=== PATIENT | male | born 1965 | race Caucasian/White ===

== ENCOUNTER 2022-06-28 14:16 | Outpatient (CLI) | payer BC, SELFPAY ==
[2022-06-28 21:29] LABS: TSH With Reflex to FT4* 0.051 uIU/mL (0.270-4.200)
[2022-06-28 23:58] LABS: Free T4 Free Thyroxine* 1.38 ng/dL (0.70-1.85)
== END 2022-06-28 14:17 | disposition home or self-care (01) ==
LOC: NFLDREF 14:17
PROVIDERS: PCP Internal Medicine; Visit Provider Internal Medicine
DX: D12.6 Benign neoplasm of colon, unspecified (principal); E05.00 Thyrotoxicosis with diffuse goiter without thyrotoxic crisis or storm; N52.9 Male erectile dysfunction, unspecified; Z86.718 Personal history of other venous thrombosis and embolism
CPT/HCPCS: 84439; 84443

== ENCOUNTER 2022-08-24 07:47 | Outpatient (CLI) | payer BC, SELFPAY ==
--- NOTE | 2022-08-24 09:37 | W.ANESCHARGE ---
Anesthesia Charges Start Date/Time Anesthesia Start Date: 08/24/22 Anesthesia Start Time: 08:25 Stop Date/Time Anesthesia Stop Date: 08/24/22 Anesthesia Stop Time: 09:00 Summary Emergency: No
--- NOTE | 2022-08-24 10:22 | W.ANESCHARGE ---
Anesthesia Charges Start Date/Time Anesthesia Start Date: 08/24/22 Anesthesia Start Time: 08:25 Stop Date/Time Anesthesia Stop Date: 08/24/22 Anesthesia Stop Time: 09:00 Summary Emergency: No
== END 2022-08-24 07:48 | disposition home or self-care (01) ==
PROVIDERS: PCP Internal Medicine; Visit Provider Internal Medicine
DX: Z12.11 Encounter for screening for malignant neoplasm of colon (principal); K63.5 Polyp of colon; K62.1 Rectal polyp; Z86.010 Personal history of colon polyps
CPT/HCPCS: 00811; 45380; 45385; 88305; J2704

== ENCOUNTER 2022-10-01 15:00 | Outpatient (RCR) | payer BC, SELFPAY | END 2022-11-21 16:50 | disposition home or self-care (01) | PROVIDERS: PCP Internal Medicine; Visit Provider Internal Medicine | DX: M25.511 Pain in right shoulder (principal); Z51.89 Encounter for other specified aftercare | CPT/HCPCS: 97110; 97140; 97162 ==

== ENCOUNTER 2022-11-01 08:55 | Outpatient (CLI) | payer BC, SELFPAY ==
[2022-11-01 13:42] LABS: Albumin* 4.4 g/dL (3.3-5.0); Chloride* 106 mmol/L (96-114); Sodium* 140 mmol/L (135-149); TSH With Reflex to FT4* 0.911 uIU/mL (0.270-4.200)
[2022-11-01 13:43] LABS: Potassium* 4.2 mmol/L (3.6-5.1)
[2022-11-01 13:45] LABS: Alanine Aminotransferase* 33 U/L (4-50); Alkaline Phosphatase* 70 U/L (40-150); Aspartate Amino Transferase* 30 U/L (12-35); Bilirubin Total* 0.6 mg/dL (0.1-1.5); Blood Urea Nitrogen* 22 mg/dL (7-30); Carbon Dioxide* 29 mmol/L (20-32); Cholesterol* 194 mg/dL (90-199); Creatinine* 0.9 mg/dL (0.5-1.5); Estimated Glomerular Filt Rate 100 ml/min; Glucose* 87 mg/dL (60-115); Total Protein* 6.8 g/dL (6.0-8.3); Triglycerides* 126 mg/dL (40-149)
[2022-11-01 13:46] LABS: Calcium* 9.2 mg/dL (8.4-10.6); HDL Cholesterol* 61 mg/dL (>=40); LDL Cholesterol Calculated 108 mg/dL (<100)
[2022-11-01 14:16] LABS: PSA Screen* 0.86 ng/mL (0.10-4.00)
== END 2022-11-01 08:56 | disposition home or self-care (01) ==
PROVIDERS: PCP Internal Medicine; Visit Provider Internal Medicine
DX: E05.00 Thyrotoxicosis with diffuse goiter without thyrotoxic crisis or storm (principal); E03.9 Hypothyroidism, unspecified; L98.9 Disorder of the skin and subcutaneous tissue, unspecified; Z12.5 Encounter for screening for malignant neoplasm of prostate; Z13.6 Encounter for screening for cardiovascular disorders
CPT/HCPCS: 80053; 80061; 84153; 84443

== ENCOUNTER 2023-01-26 16:39 | Emergency (ER) | payer BC, SELFPAY ==
[2023-01-26 16:50] VITALS: BP 129/83; PULSE 73; RESP 18; TEMP 35.9; O2SAT 100
--- NOTE | 2023-01-26 16:59 | CRLHL7_ITS ---
For Patients: As a result of the Cures Act, medical imaging exams and procedure reports are released immediately into your electronic medical record. You may view this report before your referring provider. If you have questions, please contact your health care provider. INDICATION: Fall, left rib pain TECHNIQUE: Chest and left ribs total of 3 views. COMPARISON: None. FINDINGS: The heart is normal in size. The pulmonary vasculature is within limits. The lungs are clear without focal consolidation, pleural effusion or pneumothorax. Detailed oblique views performed of the left ribs after placement of a BB at the site of pain, cortical step-off of the posterior-lateral approximate 6th rib, suggests nondisplaced fracture. IMPRESSION: 1. Cortical step-off the posterolateral approximate left 6th rib, suggests nondisplaced fracture. 2. Otherwise no acute cardiopulmonary process. Dictated by Macarena Brambila MD @ 01/26/2023 5:56:26 PM Dictated by: Macarena Brambila MD @ 01/26/2023 17:56:31 (Electronically Signed)
--- NOTE | 2023-01-26 17:51 | ED_ITS ---
HPI - General Adult General Chief complaint: Rib Pain Stated complaint: Fell on Ice Saturday - Left Ribs Injury Time Seen by Provider: 01/26/23 16:52 Source: patient Mode of arrival: ambulatory Limitations: no limitations History of Present Illness HPI narrative: Patient comes in today complaining of left sided rib pain. Patient states that he slipped and fell on his left, side 5 days ago, on concrete. He felt immediate pain. He was hoping it was going to get better, but it has not. He has episodes where is painful to take deep breaths. No coughing and no shortness of breath. He did not hit his head or lose consciousness. Related Data Home Medications Medication Instructions Recorded Confirmed sildenafil 100 mg tablet 100 mg PO QDAY PRN 06/19/22 11/01/22 Previous Rx's Medication Instructions Recorded rivaroxaban 20 mg tablet 20 mg PO QDAY DVT #90 tabs 06/28/22 triamcinolone acetonide 0.1 % 1 applic topical QDAY Skin Lesion 11/01/22 topical cream #30 grams levothyroxine 150 mcg tablet 150 mcg PO QDAY #90 tabs 12/26/22 tamsulosin 0.4 mg capsule 0.4 mg PO QDAY #90 caps 12/26/22 Allergies Allergy/AdvReac Type Severity Reaction Status Date / Time bupropion Allergy Severe suicidal Verified 01/26/23 16:53 thoughts atorvastatin Allergy Intermediate Muscle Pain Verified 01/26/23 16:53 Review of Systems Status of ROS: Reports: 6 or more systems reviewed and unremarkable except as noted in History and below [facility] Medical History Chronic neck and back pain Skin lesion Thoracic back pain Surgical History History of colonoscopy (01/2010) History of hernia repair (01/2010) Social History Smoking Status: Former smoker Do you use any of these nicotine containing products: None Second hand tobacco smoke exposure: No How often do you have a drink containing alcohol: monthly or less How many standard drinks containing alcohol do you have on a typical day: 1 or 2 How often do you have six or more drinks on one occasion: Never AUDIT-C Alcohol total score: 1 Non-prescribed substance use: denies use Exam Narrative: Exam Narrative: Well-nourished well-developed patient in no acute distress. Alert and oriented. Answers questions appropriately. Mood and affect are appropriate. Thoughts are goal oriented and rational. No tangential or magical thinking noted. Patient speaks in full sentences without needing to catch his breath. HEENT: Normocephalic atraumatic. Pupils are equally round reactive to light. Extraocular muscles are intact. Conjunctivae are moist without any icterus noted. Cardiovascular: Heart is regular rate and rhythm S1 and S2 are present without any murmurs. Lungs: Clear to auscultation bilaterally no wheezes rhonchi or rales are appreciated. Patient does have left-sided lateral chest wall discomfort when he takes a deep breath. He does have tenderness to palpation over the lateral chest wall. No ecchymosis or swelling noted. Abdomen: Soft and nontender nondistended with normal bowel sounds. No guarding or rebound. No masses or organomegaly appreciated. Skin: Well perfused without any obvious rashes. Const: Vital Signs, click to edit/add: Vital Signs - 24 hr 01/26/23 16:50 Temperature 96.6 F L Pulse Rate [Right] 73 Respiratory Rate 18 Blood Pressure [Ri ght Upper Arm] 129/83 Pulse Oximetry 100 Oxygen Delivery Me thod Room Air Course Course Hospital Course: X-rays were done showing a fractured 6th rib consistent with the location of his pain. Vital Signs Vital signs: Initial Vital Signs Temperature 96.6 F L 01/26/23 16:50 Temperature Source Temporal Artery Scan 01/26/23 16:50 Pulse Rate 73 01/26/23 16:50 Pulse Rhythm 01/26/23 16:50 Pulse Strength 3+ Normal 01/26/23 16:50 Respiratory Rate 18 01/26/23 16:50 Blood Pressure 129/83 01/26/23 16:50 Blood Pressure Mean 98 01/26/23 16:50 Blood Pressure Position Sitting 01/26/23 16:50 Pulse Oximetry 100 01/26/23 16:50 Oxygen Delivery Method 01/26/23 16:50 Vital Signs Temperature 96.6 F L 01/26/23 16:50 Pulse Rate 73 01/26/23 16:50 Respiratory Rate 18 01/26/23 16:50 Blood Pressure 129/83 01/26/23 16:50 Pulse Oximetry 100 01/26/23 16:50 Oxygen Delivery Method 01/26/23 16:50 Temperature 96.6 F L 01/26/23 16:50 Pulse Rate 73 01/26/23 16:50 Respiratory Rate 18 01/26/23 16:50 Blood Pressure 129/83 01/26/23 16:50 Pulse Oximetry 100 01/26/23 16:50 Oxygen Delivery Method 01/26/23 16:50 Medical Decision Making MDM Narrative Medical decision making narrative: 57-year-old male with a rib fracture. Discussed symptomatic treatment. I will send him home with some hydrocodone. He had no other questions. Imaging Data Rib x-ray: Attestation: I have reviewed the pertinent imaging results. Radiologist's impression: Chest and left ribs total of 3 views. COMPARISON: None. FINDINGS: The heart is normal in size. The pulmonary vasculature is within limits. The lungs are clear without focal consolidation, pleural effusion or pneumothorax. Detailed oblique views performed of the left ribs after placement of a BB at the site of pain, cortical step-off of the posterior-lateral approximate 6th rib, suggests nondisplaced fracture. IMPRESSION: 1. Cortical step-off the posterolateral approximate left 6th rib, suggests nondisplaced fracture. 2. Otherwise no acute cardiopulmonary process. Discharge Plan Discharge Clinical Impression: Closed rib fracture Patient Disposition: Home, Self-Care Condition: Stable Additional Instructions: Okay to continue using Tylenol as needed. Okay to use pain medication as prescribed. Pain medication can cause constipation, make sure to stay well hydrated. Return for evaluation if you develop fever or shortness of breath. Remember to take deep breaths throughout the day. Pain medication does contain Tylenol (acetaminophen) also. Make sure not to take more than 3000 mg of Tylenol per day. Prescription sent to [facility] Prescriptions: No Action rivaroxaban 20 mg tablet 20 mg PO QDAY Qty: 90 3RF Rx Instructions: must administer with evening meal triamcinolone acetonide 0.1 % cream 1 applic topical QDAY Qty: 30 2RF sildenafil 100 mg tablet 100 mg PO QDAY PRN Rx Instructions: administer 30 minutes to 4 hours before activity tamsulosin 0.4 mg capsule 0.4 mg PO QDAY Qty: 90 1RF levothyroxine 150 mcg tablet 150 mcg PO QDAY Qty: 90 1RF Follow Up/Referrals: Shaji Vega MD [Primary Care Provider] - Stand Alone Forms: Co.Import Info Instructions
== END 2023-01-26 18:19 | disposition home or self-care (01) ==
PROVIDERS: Emergency Provider Family Medicine; PCP Internal Medicine
DX: S22.39XA Fracture of one rib, unspecified side, initial encounter for closed fracture (principal); W19.XXXA Unspecified fall, initial encounter
CPT/HCPCS: 71101; 99283; 99284

== ENCOUNTER 2023-10-30 16:45 | Outpatient (RCR) | payer BC, SELFPAY | END 2023-12-23 15:14 | disposition home or self-care (01) | PROVIDERS: PCP Internal Medicine; Visit Provider Internal Medicine | DX: M54.2 Cervicalgia (principal); M54.9 Dorsalgia, unspecified; Z51.89 Encounter for other specified aftercare | CPT/HCPCS: 97110; 97140; 97161 ==

== ENCOUNTER 2024-05-20 08:52 | Outpatient (CLI) | payer BC, SELFPAY ==
--- OUTSIDE RECORDS SUMMARY | 2024-05-20 08:55 | XMS_ITS | Clinical Summary ---
Author Organization [employer] [facility] Address [place], [place] [address] Care Team Providers Care Appeals Analyst Name Role Phone Pcp, No Primary Care Provider Unavailabl e Allergies Active Allergy Reactions Criticality Noted Date Comments Atorvastatin Other - Describe In Comment Field 01/27/2008 muscle pain Medications Medication Sig Dispensed Refills Start Date End Date Status ASPIRIN 81 MG TAB, DELAYED RELEASEIndications:Ty pe II or unspecified type diabetes mellitus without mention of complication, not stated as uncontrolled take 1 tablet (81 mg) by oral route once daily 0 10/03/2007 Active levothyroxine (SYNTHROID) 175 mcg tablet TK 1 T PO D 3 06/12/2018 Active XARELTO 20 mg tablet TK 1 T PO D WF 12 06/11/2018 Active tamsulosin (FLOMAX) 0.4 mg capsuleIndications:Be nign prostatic hyperplasia, unspecified whether lower urinary tract symptoms present TAKE 1 CAPSULE BY MOUTH EVERY DAY AFTER A MEAL 90 capsule 07/18/2020 Active Active Problems Problem Noted Date Diagnosed Date Narcotic contract 04/29/2008 Overview: Vicodin 7.5/500, 2-3 per day, Dr. 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, not stated as uncontrolled 01/24/2007 Prostatitis, unspecified 01/24/2007 Type II or unspecified type diabetes mellitus without mention of complication, not stated as uncontrolled 05/23/2006 Encounters Date Type Department Care Team Description 05/06/2024 1:30 PM CDT - 05/06/2024 11:59 PM CDT Hospital Encounter [facility] [address] [place] [address] Self, Referral Screening for cardiovascular condition 05/06/2024 Travel from Last 3 Months Immunizations Name Administration Dates Next Due Influenza, IIV3 (Age >=3 years) 10/03/2007,09/11 Td (Age >=7 Years) 08/20/1997 Family History Medical History Relation Name Comments Hypertension Father Heart Disease Maternal Grandfather 65 yea rs Diabetes Paternal Grandmother Cancer Paternal Uncle throat Relation Name Status Comments Father Maternal Grandfather Paternal Grandmother Paternal Uncle Social History Tobacco Use Types Packs/Day Years Used Date Smoking Tobacco: Former Cigarettes 0 02/17/1983 - 02/18/2008 Smokeless Tobacco: Never Tobacco Cessation:Counseling Given: Yes Alcohol Use Standard Drinks/Week Comments Yes 0 (1 standard drink = 0.6 oz pur e alcohol) very seldom Sex and Gender Information Value Date Recorded Sex Assigned at Not on file Gender Identity Not on file Sexual Orientation Not on file Obstetrics History Last Filed Vital Signs Vital Sign Reading Time Taken Comments Blood Pressure 126/85 06/25/2018 3:42 PM CDT Pulse 74 06/25/2018 3:42 PM CDT Temperature 36.9 ??C (98.5 ??F) 06/25/2018 3:42 PM CD T Respiratory Rate - - Oxygen Saturation 98% 06/25/2018 3:42 PM CDT Inhaled Oxygen Concentration - - Weight 106.3 kg (234 lb 6.4 oz) 06/25/2018 3:42 PM CDT Height 187.3 cm (6' 1.75) 06/25/2018 3:42 PM CD T Body Mass Index 30.3 06/25/2018 3:42 PM CDT Plan of Treatment Health Maintenance Due Date Last Done Comments Tdap 1977 Depression screening for age 12+ 1978 HIV for age 15-65 1981 Hepatitis C screening for age 18-79 1984 Tetanus booster 08/20/2007 08/20/1997 Colonoscopy through age 75 2011 Lipids for age 45-75 12/30/2012 12/30/2007, 10/03/2007, 08/07/2007, Additional history exists Zoster (shingles) series for age 50+ (1 of 2) 2016 BMI (ht and wt on same day) for age 18+ 06/25/2019 06/25/2018 COVID-19 vaccine series (2022- season) 2023 03/15/2021, 02/15/2021 Influenza for age 50-64 07/26/2024 10/03/2007, 09/11 Pneumococcal series for age 6-64 Aged Out No longer eligible based on patient's age to complete this topic Procedures Procedure Name Priority Date/Time Associated Diagnosis Comments CT CARDIAC CALCIUM SCORE ONLY WO SINGLE READ Routine 05/06/2024 1:58 PM CDT Screening for cardiovascular condition LIPID PANEL Routine 12/30/2007 7:59 AM [employer]CH[employer]ICIAN Vaccination Against Influenza Diabetes Mellitus Type Ii Hyperlipidemia from Last 3 Months or Most Recently Relevant to Health Maintenance Results * CT CARDIAC CALCIUM SCORE ONLY WO SINGLE READ (05/06/2024 1:58 PM CDT) Anatomical Region Laterality Modality Computed Tomogra phy Impressions 05/07/2024 6:55 PM CDT ??There are no acute or suspicious extracardiac imaging abnormalities. Please note that all CT scans at this facility use dose modulation, iterative reconstruction and/or weight-based dosing when appropriate to reduce radiation dose to as low as reasonably achievable. Lonnie Huffman M.D. Pediatric/Diagnostic Radiologist Cardiothoracic [email or web address] KRISTIN/elaine / ? Narrative 05/07/2024 6:55 PM CDT For Patients: As a result of the Century Cures Act, medical imaging exams and procedure reports are released immediately into your electronic medical record. ??You may view this report before your referring provider. ?? If you have questions, please contact your health care provider. CT CARDIAC CALCIUM SCORING 05/06/2024 PATIENT HISTORY: ??Screening for cardiovascular condition. ?? REPORT: ??High-resolution, ECG-synchronized noncontrast computed tomography of the heart with attention to the coronary arteries was performed. ?? Coronary calcification analyzed using Siemens calcium scoring software. These are the results of the evaluation: CT Calcium Scoring: ??This cardiac CT examination will provide you with a coronary artery calcium score. A coronary artery calcium score is a measurement of the amount of calcified plaque in the coronary arteries, the arteries that supply blood to the heart muscle. The coronary artery calcium score is calculated based on the number, size, and density of the calcified plaques in the coronary arteries. The amount of calcified coronary plaque has been shown to directly correlate with future risk for heart disease. The coronary artery calcium is a marker of how much plaque has accumulated in the seals of the coronary arteries. It is not a test for blockages. This test is intended to assess cardiovascular risk in patients without symptoms. It is not intended to be a test for individuals with chest pain or other possible symptoms suggestive of heart disease. If you are having chest pain or other potential cardiovascular symptoms, see your physician. Calcium Score: Left main = 0 Left anterior descending = 0 Left circumflex = 0 Right coronary artery = 0 Total calcium score = 0 This places the patient at the zero percentile for matched age and gender. NO CALCIFIED PLAQUE SEEN Assessment: Your cardiac CT examination has shown no measurable calcified coronary plaque. Your coronary artery calcium score is zero. Having zero calcified plaque in the arteries that supply your heart is associated with a low risk for heart attack over the next 5 years. As discussed above, the coronary artery calcium score is intended for risk assessment in patients without cardiovascular symptoms. The low risk associated with having zero calcified plaque does not apply to individuals who are having symptoms. If you are having chest pain or other potential cardiovascular symptoms, see your physician. Recommendations: To maintain a low cardiovascular risk, we strongly recommend adherence to healthy lifestyle behaviors including: Following a heart healthy diet focused on modest portion sizes, a high intake of fresh fruits and vegetables, whole grains, healthy fats (olive oil, nuts and seeds, avocados), and healthy proteins (unprocessed meats, fish, legumes) Following an active lifestyle including 30-45 minutes of moderate intensity exercise 5-6 times per week Avoidance of tobacco products The scientific evidence would suggest that the majority of individuals with a coronary artery calcium score of zero are at low risk for a heart attack, low enough risk that they are unlikely to benefit from preventive cardiovascular medication including aspirin and the cholesterol lowering statin medications. We recommend that individuals with a coronary artery calcium score of zero avoid taking a daily aspirin to prevent heart disease, as they are unlikely to benefit from aspirin, and aspirin use is associated with a small increase in the risk of bleeding. Unless you have markedly elevated cholesterol or diabetes, the scientific evidence would suggest that individuals with a calcium score of zero can potentially avoid taking cholesterol-lowering medications for the next 3-5 years. These recommendations are generalized and may not specifically apply to you as an individual. Your primary care physician is in the best position to provide advice on your care and clinical decisions should ultimately be made by you and your physician. Referral Self CT * (ABNORMAL) LIPID PANEL (12/30/2007 7:59 AM [employer] TECHNICIAN) Pathologist [facility] CHOLESTEROL,TOTAL 129 110 - 199 mg/dL [facility] TRIGLYCERIDES 135 <150 mg/dL [facility] HDL CHOLESTEROL 38(L) >40 mg/dL [facility] CHOL/HDL RATIO 3.39 <4.51 [facility] LDL CHOLESTEROL 64 <131 mg/dL [facility] PATIENT STATUS Fasting [facility] Blood specimen (specimen) BLOOD SPECIMEN / Unknown 12/30/2007 7:59 AM [employer] TECHNICIAN 12/30/2007 7:51 AM [employer] TECHNICIAN Jimmy Noavk MD CHEMISTRY [facility] [address] [place] [address] from Last 3 Months or Most Recently Relevant to Health Maintenance Care Teams Appeals Analyst Relationship Specialty Start Date End Date Pcp, No . PCP - General 05/05/24
== END 2024-05-20 08:53 | disposition home or self-care (01) ==
LOC: NFLDREF 08:54
PROVIDERS: PCP Internal Medicine; Visit Provider Internal Medicine
DX: N52.9 Male erectile dysfunction, unspecified (principal)
CPT/HCPCS: 84403

== ENCOUNTER 2024-09-18 19:36 | Emergency (ER) | payer BC, SELFPAY ==
[2024-09-18] VITALS (9 sets, daily range): BP systolic 159; BP diastolic 90; PULSE 82–99; RESP 16; TEMP 36.5; O2SAT 91–97; BMI 28.2
--- NOTE | 2024-09-18 21:01 | ED_ITS ---
HPI - Dizziness General Time Seen by Provider: 21:01 Date Seen: 09/18/24 Chief Complaint: Dizziness/Vertigo Stated Complaint: Dizzy--took too many edibles, R flank pain Time Seen by Provider: 09/18/24 21:00 Source: patient, RN notes reviewed and old records reviewed Mode of arrival: ambulatory Limitations: no limitations History of Present Illness HPI Narrative: This 59-year-old male accompanied by family with complaint of right flank pain. They were going to dinner tonight, felt it come on severe at dinner in his right flank and right upper quadrant. He got very nauseated and clammy with this. For the past couple months he has been may be having some mild pain, feels like it may come on after eating. He had not eaten tonight however. No fevers chills prior, no vomiting. He feels the pain is coming in waves. His mom has had her gallbladder out. He has no history of kidney stones, has not had any abdominal surgery before. He admits that he took too much THC gummies around 4:00 p.m. for foot pain. He felt suddenly dizzy tonight at dinner with all of this. He admits he maybe took 10 times the recommended amount. He is ultimately here for the abdominal/flank pain. No trauma. He has noted no urinary changes, no hematuria. He is on Xarelto for history of a DVT. He is also on tamsulosin for BPH. In review of his chart, he has had inguinal hernia repair and colonoscopy before. Related Data Previous Rx's ?Medication ?Instructions ?Recorded levothyroxine 150 mcg tablet 150 mcg PO QDAY #90 tabs 01/08/24 rivaroxaban 20 mg tablet 20 mg PO QDAY DVT #90 tabs 01/08/24 tamsulosin 0.4 mg capsule 0.4 mg PO QDAY #90 caps 01/08/24 cephalexin 500 mg tablet 500 mg PO TID #20 tabs 09/19/24 Allergies Allergy/AdvReac Type Severity Reaction Status Date / Time bupropion Allergy Severe suicidal Verified 09/18/24 20:02 thoughts atorvastatin Allergy Intermediate Muscle Pain Verified 09/18/24 20:02 Review of Systems Status of ROS: Reports: 6 or more systems reviewed and unremarkable except as noted in History and below [facility] Medical History Otitis media ?H66.90 - Otitis media, unspecified, unspecified ear (ICD-10) Neck pain ?M54.2 - Cervicalgia (ICD-10) Skin lesion ?L98.9 - Disorder of the skin and subcutaneous tissue, unspecified (ICD-10) Chronic neck and back pain ?M54.2 - Cervicalgia (ICD-10) ?M54.9 - Dorsalgia, unspecified (ICD-10) ?G89.29 - Other chronic pain (ICD-10) Thoracic back pain ?M54.6 - Pain in thoracic spine (ICD-10) Surgical History History of sinus surgery ?Z98.890 - Other specified postprocedural states (ICD-10) History of hernia repair (01/2010) ?Z98.890 - Other specified postprocedural states (ICD-10) ?Z87.19 - Personal history of other diseases of the digestive system (ICD-10) History of colonoscopy (01/2010) ?Z98.890 - Other specified postprocedural states (ICD-10) Social History Smoking Status: Former smoker Do you use any of these nicotine containing products: None Second hand tobacco smoke exposure: No How often do you have a drink containing alcohol: monthly or less How many standard drinks containing alcohol do you have on a typical day: 1 or 2 How often do you have six or more drinks on one occasion: Never AUDIT-C Alcohol total score: 1 Non-prescribed substance use: marijuana (any form) Exam Const: Vital Signs, click to edit/add: Vital Signs - 24 hr 09/18/24 20:02 09/18/24 21:12 09/18/24 21:20 Temperature 97.7 F Pulse Rate 93 88 Pulse Rate [Pulse Oximeter] 99 Respiratory Rate 16 Blood Pressure [Ri ght Upper Arm] 159/90 H Pulse Oximetry 96 94 92 Oxygen Delivery Me thod Room Air 09/18/24 21:30 09/18/24 21:35 09/18/24 21:45 Temperature Pulse Rate 92 87 92 Pulse Rate [Pulse Oximeter] Respiratory Rate Blood Pressure [Ri ght Upper Arm] Pulse Oximetry 96 93 94 Oxygen Delivery Me thod 09/18/24 22:00 09/18/24 22:05 09/18/24 22:15 Temperature Pulse Rate 88 89 82 Pulse Rate [Pulse Oximeter] Respiratory Rate Blood Pressure [Ri ght Upper Arm] Pulse Oximetry 97 93 91 Oxygen Delivery Me thod This patient initially is tearful, willing and crying, pain seems to settle while I am in there and he does start falling asleep. Sclera are injected but no icterus, pupils equal round, reactive. Symmetrical facial function. Speech is normal. Neck is supple. Lungs are clear, good air entry, no wheezing crackles. CV regular rate and rhythm, no murmur, normal S1-S2, no S3-S4. Abdomen right now is soft, nontender, no rebound or guarding. He states there is maybe some deep right lateral upper abdominal pain but he certainly has no rebound or guarding. I feel no masses. Bowel sounds are present. He has normal lower extremities, no edema noted. Documenting provider has reviewed patient's vital signs: yes Course Course ED Course: Patient did just urinate prior to coming in. Will start with CT imaging noncontrast given that his pain is coming in waves. Top etiologies are gallbladder disease, kidney disease with kidney stones. Will initiate IV fentanyl as he is on Xarelto and thus do not feel we should be using Toradol. Will also give him Zofran for control of nausea. Will get full complement of labs including urinalysis. They understand that he may need to go back for CT imaging with IV contrast if need be. He will be monitored on pulse oximetry. Will obtain EKG and troponin, consider atypical presentation of cardiac disease. Reevaluation(s) Time of Reevaluation #1: 22:38 Reevaluation #1: Reviewed CT report with patient. There is nothing to explain his pain. We did discuss the probable renal cyst but if not seen them causes excruciating pain. This could be further followed up with renal ultrasound outpatient. He has not provided a urinalysis yet, will allow and drink. He states he is ?shitty?. He states he keeps getting spasms of pain. We discussed that sometimes we do not find initially etiologies, may need to follow up with his primary. Certainly if he has ongoing issues or issues are changing, re-evaluation will always be recommended. He understands that I would like to see his urinalysis but at this time I do not have definitive etiology. Muscles can spasm but it sounds as if this was quite severe for him. I am not sure of the etiology but I am not finding anything emergent to intervene on at this time. Time of Reevaluation #2: 00:51 Reevaluation #2: Have reviewed with patient that there is small amount of bacteria on his urinalysis but not a lot of white blood cells. We discussed treating for a possibility of underlying urinary tract infection while we await urine culture. We went over pros and cons of this, he opted to treat. Will give him dose of oral Keflex here tonight and send rest of prescription into his pharmacy. He has a follow-up appointment with Dr. Vega this week. They can follow-up on the culture result and decide if ongoing antibiotics are needed or not. Vital Signs Vital signs: Initial Vital Signs Temperature 97.7 F 09/18/24 20:02 Temperature Source Temporal Artery Scan 09/18/24 20:02 Pulse Rate 99 09/18/24 20:02 Respiratory Rate 16 09/18/24 20:02 Blood Pressure 159/90 H 09/18/24 20:02 Blood Pressure Mean 113 H 09/18/24 20:02 Blood Pressure Position Sitting 09/18/24 20:02 Pulse Oximetry 96 09/18/24 20:02 Oxygen Delivery Method Room Air 09/18/24 20:02 Vital Signs Temperature 97.7 F 09/18/24 20:02 Pulse Rate 99 09/18/24 20:02 Respiratory Rate 16 09/18/24 20:02 Blood Pressure 159/90 H 09/18/24 20:02 Pulse Oximetry 96 09/18/24 20:02 Oxygen Delivery Method Room Air 09/18/24 20:02 Temperature 97.7 F 09/18/24 20:02 Pulse Rate 82 09/18/24 22:15 Respiratory Rate 16 09/18/24 20:02 Blood Pressure 159/90 H 09/18/24 20:02 Pulse Oximetry 91 09/18/24 22:15 Oxygen Delivery Method Room Air 09/18/24 20:02 Medications Administered Medications: Discontinued Medications Generic Name Dose Route Start Last Admin Trade Name Freq PRN Reason Stop Dose Admin Fentanyl 25 mcg 09/18/24 21:09 09/18/24 21:40 Fentanyl 100 Mcg/2 Ml Inj IVP 09/18/24 21:10 25 mcg ONCE ONE Administration Sodium Chloride 500 mls @ 500 mls/hr 09/18/24 21:07 09/18/24 22:25 0.9 % Sodium Chloride 500 Ml IV 09/18/24 22:06 Infused .Q1H ONE Infusion Ondansetron HCl 4 mg 09/18/24 21:07 09/18/24 21:40 Ondansetron 2 Mg/Ml Inj IVP 09/18/24 21:08 4 mg ONCE ONE Administration MDM - Dizziness Lab Data Attestation: I reviewed the patient's lab results. Labs: Lab Results 09/18/24 09/18/24 Range/Units 21:29 23:39 WBC 8.38 (4.50-11.00) K/uL RBC 4.42 (4.30-5.90) m/uL Hgb 14.7 (13.5-17.5) gm/dL Hct 43.1 (37.0-53.0) % MCV 98 (80-100) fL MCH 33 (26-34) pg MCHC 34 (32-36) gm/dL RDW Coeff of Snow 12.0 (11.5-15.5) % Plt Count 181 (140-440) K/uL Neut % (Auto) 79.3 H (42.0-72.0) % Lymph % (Auto) 11.0 L (20-44) % Frio % (Auto) 9.1 (0.0-11.0) % Eos % (Auto) 0.4 (0.0-7.0) % Baso % (Auto) 0.1 (0.0-3.0) % Neut # (Auto) 6.60 (1.7-7.0) K/uL Lymph # (Auto) 0.90 (0.90-2.90) K/uL Frio # (Auto) 0.80 (0.00-0.90) K/UL Eos # (Auto) 0.03 (0.00-0.50) K/uL Baso # (Auto) 0.01 (0.00-0.30) K/uL Abs Immat Gran (auto) 0.01 (0.00-0.30) K/uL Imm/Tot Granulo (auto) 0.1 % Sodium 132 L (135-149) mmol/L Potassium 3.5 L (3.6-5.1) mmol/L Chloride 99 (96-114) mmol/L Carbon Dioxide 25 (20-32) mmol/L Anion Gap 8 (7-15) mEq/L BUN 21 (7-30) mg/dL Creatinine 1.0 (0.5-1.5) mg/dL Estimated Creat Clear 93.62 Estimated GFR 87 ml/min Glucose 126 H (60-115) mg/dL Lactate 0.9 (0.5-1.9) mmol/L Calcium 9.3 (8.4-10.6) mg/dL Total Bilirubin 0.4 (0.1-1.5) mg/dL Direct Bilirubin 0.1 (0.0-0.5) mg/dL AST 28 (12-35) U/L ALT 27 (4-50) U/L Alkaline Phosphatase 51 (40-150) U/L Troponin I < 0.01 L (0.01-0.04) ng/mL C-Reactive Protein < 0.5 L (0.5-1.0) mg/dL Total Protein 7.1 (6.0-8.3) g/dL Albumin 4.7 (3.3-5.0) g/dL Lipase 180 (23-300) U/L Urine Color Yellow (Yellow) Urine Appearance Clear (Clear) Urine pH 5.5 (5.0-8.5) Ur Specific [place] 1.015 (1.000-1.030) Urine Protein Negative (Negative) Urine Glucose (UA) Negative (Negative) Urine Ketones Negative (Negative) Urine Blood 1+ A (Negative) Urine Nitrite Negative (Negative) Urine Bilirubin Negative (Negative) Urine Urobilinogen 0.2 (0.2-1.0) Ur Leukocyte Esterase Trace A (Negative) Urine RBC 2-5 A (0-2) Urine WBC 0-2 (0-5) Ur Squamous Epith Cells None (None-Few) Urine Bacteria Few A (None) Ethyl Alcohol < 0.01 L (0.01-0.03) % Imaging Data CT scan - abdomen: Attestation: I have reviewed the pertinent imaging results. My impression: Did look it is noncontrast CT. Certainly do not see any changes room the gallbladder or anything within the right kidney. He may have some renal cysts. Await Radiology over-read. Radiologist's impression: Patient: HAILEY LEUNG JR Facility:?[facility] Patient ID:?[id number] Site Patient ID:?[id number]. Site :?[id number] Study:?CT-Abdomen/Pelvis w/o-09/18/2024 9:17:58 PM Ordering Physician:?Gregory Bo Final Report: INDICATION: Right upper quadrant, right flank pain TECHNIQUE: CT Abdomen and pelvis without i.v. contrast. Coronal and sagittal reformats were obtained. COMPARISON: 11/16/2020 FINDINGS: Lower chest: Unremarkable. Liver: Unremarkable. Spleen: Unremarkable. Pancreas: Unremarkable. Gallbladder: Unremarkable. Kidney: Several low-density lesions are present within the right kidney measuring up to 5.5 cm. These are incompletely characterized without the use of intravenous contrast. There is an 8 mm stone present in the lower pole of the left kidney. Adrenal: Unremarkable. Bowel: Moderate diverticulosis of the sigmoid colon is present with no evidence of diverticulitis. The appendix is normal in appearance and size. Vascular: Unremarkable. Lymph: Unremarkable. Peritoneum: Unremarkable. No pneumoperitoneum is seen. No significant ascites is noted. Pelvis: Unremarkable. Soft tissue: Unremarkable. Bone: Unremarkable for age. IMPRESSION: 1. No CT correlate for the patient`s symptoms seen. Dictated by Sharan Gleason MD @ 09/18/2024 9:34:03 PM Please note that all CT scans at this facility use dose modulation, iterative reconstruction, and/or weight-based dosing when appropriate to reduce radiation dose to as low as reasonably achievable. Dictated by: Sharan Gleason MD @ 09/18/2024 21:34:17 (Electronic Signature) ECG Data Attestation: I personally reviewed and interpreted this ECG as follows: (Normal sinus rhythm, 83 beats per minute. No acute ischemia, no infarct.) ECG interpretation date: 09/18/24 ECG interpretation time: 22:31 Prior ECG tracings: not available for review Discharge Plan Discharge Clinical Impression: Acute right flank pain, Bacteriuria Instructions: Urinary Tract Infection in Men (ED), Flank Pain (ED) Additional Instructions: We will cover with antibiotics with Keflex and weight urine culture results. It is possible that there could be infection in the urinary tract. Watch for fever, increasing pain, vomiting with these symptoms; please seek re-evaluation if you note these. If you have other concerns in the interim room or symptoms are changing, recommend re-evaluation. Otherwise take antibiotics as prescribed, push fluids and follow-up with your primary provider this upcoming week as you have scheduled. Activity Level: Activity as Tolerated Prescriptions: New cephalexin 500 mg tablet 500 mg PO TID Qty: 20 0RF No Action levothyroxine 150 mcg tablet 150 mcg PO QDAY Qty: 90 3RF rivaroxaban 20 mg tablet 20 mg PO QDAY Qty: 90 3RF Rx Instructions: must administer with evening meal tamsulosin 0.4 mg capsule 0.4 mg PO QDAY Qty: 90 3RF Follow Up/Referrals: Shaji Vega MD [Primary Care Provider] - Stand Alone Forms: [employer] Info Instructions
--- NOTE | 2024-09-18 21:08 | CRLHL7_ITS ---
For Patients: As a result of the Cures Act, medical imaging exams and procedure reports are released immediately into your electronic medical record. You may view this report before your referring provider. If you have questions, please contact your health care provider. INDICATION: Right upper quadrant, right flank pain TECHNIQUE: CT Abdomen and pelvis without i.v. contrast. Coronal and sagittal reformats were obtained. COMPARISON: 11/16/2020 FINDINGS: Lower chest: Unremarkable. Liver: Unremarkable. Spleen: Unremarkable. Pancreas: Unremarkable. Gallbladder: Unremarkable. Kidney: Several low-density lesions are present within the right kidney measuring up to 5.5 cm. These are incompletely characterized without the use of intravenous contrast. There is an 8 mm stone present in the lower pole of the left kidney. Adrenal: Unremarkable. Bowel: Moderate diverticulosis of the sigmoid colon is present with no evidence of diverticulitis. The appendix is normal in appearance and size. Vascular: Unremarkable. Lymph: Unremarkable. Peritoneum: Unremarkable. No pneumoperitoneum is seen. No significant ascites is noted. Pelvis: Unremarkable. Soft tissue: Unremarkable. Bone: Unremarkable for age. IMPRESSION: 1. No CT correlate for the patient`s symptoms seen. Dictated by Sharan Gleason MD @ 09/18/2024 9:34:03 PM Please note that all CT scans at this facility use dose modulation, iterative reconstruction, and/or weight-based dosing when appropriate to reduce radiation dose to as low as reasonably achievable. Dictated by: Sharan Gleason MD @ 09/18/2024 21:34:17 (Electronically Signed)
--- OUTSIDE RECORDS SUMMARY | 2024-09-18 21:12 | XMS_ITS | Clinical Summary ---
Author Organization [facility] Address [place], [place] [address] Care Team Providers Care Gear Cutter Name Role Phone Pcp, No Primary Care [...] Noted Date Diagnosed Date Narcotic contract 04/29/2008 Overview (04/29/2008): Vicodin 7.5/500, 2-3 per day, Dr. 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 LDL CHOLESTEROL 64 <131 mg/dL [facility] PATIENT STATUS Fasting [facility] Blood specimen (specimen) BLOOD SPECIMEN / Unknown 12/30/2007 7:59 AM LINK WIRE FABRIC MACHINE OPERATOR 12/30/2007 7:51 AM LINK WIRE FABRIC MACHINE OPERATOR Jimmy Novak MD CHEMISTRY [facility] [address] [place] [address] from Last 3 Months or Most Recently Relevant to Health Maintenance Care Teams Gear Cutter Relationship Specialty Start Date End Date Pcp, No . PCP - General 05/05/24
[2024-09-18 21:30] LABS: Lactate* 0.9 mmol/L (0.5-1.9)
[2024-09-18 21:32] LABS: Basophils Absolute Auto 0.01 K/uL (0.00-0.30); Basophils Percent Auto 0.1 % (0.0-3.0); Eosinophils Absolute Auto 0.03 K/uL (0.00-0.50); Eosinophils Percent Auto 0.4 % (0.0-7.0); Hematocrit 43.1 % (37.0-53.0); Hemoglobin* 14.7 gm/dL (13.5-17.5); Immature Granulocytes Abs Auto 0.01 K/uL (0.00-0.30); Immature Granulocytes Pct Auto 0.1 %; Mean Corpuscular HGB Conc 34 gm/dL (32-36); Mean Corpuscular Hemoglobin 33 pg (26-34); Mean Corpuscular Volume 98 fL (80-100); Monocytes Percent Auto 9.1 % (0.0-11.0); Neutrophils Percent Auto 79.3 % (42.0-72.0); Platelet Count* 181 K/uL (140-440); Red Blood Count 4.42 m/uL (4.30-5.90); White Blood Count* 8.38 K/uL (4.50-11.00)
[2024-09-18 21:40] LABS: Slide Review Reflex No
[2024-09-18] MEDS: 0.9 % SODIUM CHLORIDE 500 ML 500 ML IV (21:40)
[2024-09-18] MEDS: fentaNYL 100 MCG/2 ML inj 25 MCG IVP (21:40)
[2024-09-18] MEDS: ONDANSETRON 2 MG/ML inj 4 MG IVP (21:40)
[2024-09-18 21:48] LABS: Albumin* 4.7 g/dL (3.3-5.0); Chloride* 99 mmol/L (96-114); Sodium* 132 mmol/L (135-149)
[2024-09-18 21:49] LABS: Potassium* 3.5 mmol/L (3.6-5.1)
[2024-09-18 21:51] LABS: Anion Gap 8 mEq/L (7-15); Aspartate Amino Transferase* 28 U/L (12-35); Bilirubin Direct* 0.1 mg/dL (0.0-0.5); Bilirubin Total* 0.4 mg/dL (0.1-1.5); Carbon Dioxide* 25 mmol/L (20-32); Est. Creatinine Clearance* 93.62; Estimated Glomerular Filt Rate 87 ml/min; Total Protein* 7.1 g/dL (6.0-8.3)
[2024-09-18 21:52] LABS: Alanine Aminotransferase* 27 U/L (4-50); Alkaline Phosphatase* 51 U/L (40-150); Blood Urea Nitrogen* 21 mg/dL (7-30); Calcium* 9.3 mg/dL (8.4-10.6); Glucose* 126 mg/dL (60-115); Lipase* 180 U/L (23-300)
[2024-09-18 22:06] LABS: C Reactive Protein* < 0.5 mg/dL (0.5-1.0); Ethanol* < 0.01 % (0.01-0.03); Troponin I* < 0.01 ng/mL (0.01-0.04)
[2024-09-18 23:53] LABS: Appearance Urine Clear (Clear); Bilirubin Urine Negative (Negative); Blood Urine 1+ (Negative); Color Urine Yellow (Yellow); Glucose Urine Negative (Negative); Ketones Urine Negative (Negative); Leukocyte Esterase Urine Trace (Negative); Nitrite Urine Negative (Negative); Protein Urine Negative (Negative); Specific Gravity Urine 1.015 (1.000-1.030); Urobilinogen Urine 0.2 (0.2-1.0); pH Urine 5.5 (5.0-8.5)
[2024-09-19 00:01] LABS: Bacteria Urine Few; WBC Urine 0-2 (0-5)
[2024-09-19] MEDS: cephALEXin 500 MG CAPSULE PO (01:14)
== END 2024-09-19 01:21 | disposition home or self-care (01) ==
PROVIDERS: Emergency Provider Family Medicine; PCP Internal Medicine
DX: R10.9 Unspecified abdominal pain (principal); R78.81 Bacteremia
CPT/HCPCS: 36415; 74176; 80053; 81001; 82077; 82248; 83605; 83690; 84484; 85025; 86140; 87086; 93005; 94761; 96374; 96375; 99284; 99285; A9270; J2405; J3010; J7030

== ENCOUNTER 2025-02-09 17:25 | Outpatient (CLI) | payer BC, SELFPAY ==
--- NOTE | 2025-02-09 17:30 | CRLHL7_ITS ---
For Patients: As a result of the 21st Century Cures Act, medical imaging exams and procedure reports are released immediately into your electronic medical record. You may view this report before your referring provider. If you have questions, please contact your health care provider. CLINICAL INDICATION: Left ankle pain. COMPARISON IMAGING STUDIES: Radiographs from 01/04/2025. TECHNICAL: Non-contrast MR of the left ankle. Axial, sagittal and coronal T1, PD, PDFS and STIR images. 1.5 Joann MR scanner. FINDINGS: OSSEOUS STRUCTURES: There are a few areas of subchondral bone marrow edema related to chondromalacia. Reactive cystic-like change involves the superior calcaneus adjacent to the sinus tarsi. There is no acute fracture or avascular necrosis. JOINT SPACES: Small area of subchondral bone marrow edema underlying the medial talar dome and overlies the medial margin of the tibial plafond and likely relate to small areas of grade 4 cartilage fissuring. Minor osteophyte formation involving the ankle joint. No significant ankle joint effusion. The talar-navicular and calcaneocuboid joint spaces are maintained. There are degenerative changes of the navicular-cuneiform articulations with areas of subchondral bone marrow edema related to grade 4 chondromalacia. LIGAMENTS: Syndesmotic Ligaments: The anterior and posterior syndesmotic ligaments are intact. Lateral Ligaments: The anterior talofibular, calcaneofibular and posterior talofibular ligaments are intact. Medial Ligaments: The superficial and deep components of the deltoid ligament complex are maintained. Spring Ligaments: The calcaneonavicular spring ligament complex is intact. TENDONS: Flexor Tendons: The posterior tibial, flexor digitorum longus and flexor hallucis longus tendons are intact. Extensor Tendons: The anterior extensor tendons are intact. Achilles Tendon: The Achilles tendon is intact without tendinosis, tear or peritendinitis changes. Peroneal Tendons: The peroneus longus and brevis tendons are intact. TARSAL TUNNEL: No mass or fluid collection within the tarsal tunnel. SINUS TARSI: The sinus tarsi fat is effaced compatible with sinus tarsi syndrome. PLANTAR SOFT TISSUES: Tiny plantar calcaneal spur. Proximal plantar fascia intact. OTHER FINDINGS: Subcutaneous varicosities are present laterally. IMPRESSION: 1. 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 2. Degenerative changes of the ankle and navicular-cuneiform articulations. 3. Tendons intact. 4. The ankle ligaments are intact. Dictated by Rao Haskins MD @ 02/10/2025 8:25:28 AM (Electronically Signed)
--- NOTE | 2025-02-09 18:15 | CRLHL7_ITS ---
For Patients: As a result of the 21st Century Cures Act, medical imaging exams and procedure reports are released immediately into your electronic medical record. You may view this report before your referring provider. If you have questions, please contact your health care provider. CLINICAL INDICATION: Right ankle pain. COMPARISON IMAGING STUDIES: Radiographs from 01/04/2025. TECHNICAL: Non-contrast MR of the right ankle. Axial, sagittal and coronal T1, PD, PDFS and STIR images. 1.5 Joann MR scanner. FINDINGS: OSSEOUS STRUCTURES: There is no acute fracture. There are areas of subchondral bone marrow edema related due chondromalacia and degenerative change. Minimal reactive cystic-like change underlying the posterior aspect of the sinus tarsi. JOINT SPACES: Small area of subchondral bone marrow edema underlying the lateral talar dome likely relates to overlying occult cartilage fissuring. No ankle joint effusion. Subtalar joint spaces are maintained. The talar-navicular and calcaneocuboid joint spaces are maintained. Degenerative changes of the navicular-cuneiform articulations with areas of subchondral bone edema. Degenerative changes of the 2nd TMT articulation with subchondral bone edema present dorsally. LIGAMENTS: Syndesmotic Ligaments: The anterior and posterior syndesmotic ligaments are intact. Lateral Ligaments: Chronic ossicles are present distal to the lateral malleolar tip associated with the anterior talofibular and calcaneofibular ligament attachment sites. These may relate either to remote nonunited avulsion fractures or heterotopic ossification in the setting of remote ligament tearing. Medial Ligaments: Ossification within the deltoid ligament likely reflecting heterotopic ossification in the setting of remote ligament tearing. Spring Ligaments: Intact. TENDONS: Flexor Tendons: The posterior tibial, flexor digitorum longus and flexor hallucis longus tendons are intact. Extensor Tendons: The anterior extensor tendons are intact. Achilles Tendon: The Achilles tendon is intact. Peroneal Tendons: The peroneus longus and brevis tendons are intact. TARSAL TUNNEL: No mass or fluid collection within the tarsal tunnel. SINUS TARSI: No complete effacement of sinus tarsi fat. PLANTAR SOFT TISSUES: Tiny plantar calcaneal spur. Proximal plantar fascia is intact. OTHER FINDINGS: Subcutaneous varicosities are present medially. IMPRESSION: 1. Chronic ossicles associated with the right ankle anterior talofibular and calcaneofibular ligament attachment sites to the distal fibula which may relate either to chronic nonunited remote avulsion fractures or heterotopic ossification in the setting of remote ligament tearing. 2. Heterotopic ossification within the deltoid ligament compatible with sequelae of remote high-grade tearing. 3. Syndesmotic ligaments intact. 4. Degenerative changes of navicular cuneiform and 2nd TMT articulations. 5. Small area of subchondral bone marrow edema involving the lateral talar dome may relate to overlying occult grade 4 cartilage fissuring. Dictated by Rao Haskins MD @ 02/10/2025 8:33:11 AM (Electronically Signed)
== END 2025-02-09 17:26 | disposition home or self-care (01) ==
LOC: MRI 17:25
PROVIDERS: PCP Internal Medicine; Visit Provider Podiatrist
DX: M25.572 Pain in left ankle and joints of left foot (principal); M25.571 Pain in right ankle and joints of right foot
CPT/HCPCS: 73721

== ENCOUNTER 2025-03-09 10:36 | Outpatient (CLI) | payer BC, SELFPAY | END 2025-03-09 10:37 | disposition home or self-care (01) | LOC: NFLDREF 10:37 | PROVIDERS: PCP Internal Medicine; Visit Provider Internal Medicine | DX: E05.00 Thyrotoxicosis with diffuse goiter without thyrotoxic crisis or storm (principal) | CPT/HCPCS: 84443 ==

== ENCOUNTER 2025-09-02 08:44 | Outpatient (CLI) | payer BC, SELFPAY ==
--- NOTE | 2025-09-02 10:24 | P.ANES_ITS ---
Anesthesia Charges Start Date/Time Anesthesia Start Date: 09/02/25 Anesthesia Start Time: 09:36 Stop Date/Time Anesthesia Stop Date: 09/02/25 Anesthesia Stop Time: 10:23 Coding CPT Codes CPT Codes: ANES LWR INTST NDSC NOS - 08668 ([id number]) P3 - PATIENT W/SEVERE SYS DISEASE, QK - SECTION REPAIRER 2-4 CNCRNT ANES PROC, QX - APPOINTMENT SPECIALIST SVC W/ MD MED DIRECTION
--- NOTE | 2025-09-02 10:24 | W.ANESCHARGE ---
Anesthesia Charges Start Date/Time Anesthesia Start Date: 09/02/25 Anesthesia Start Time: 09:36 Stop Date/Time Anesthesia Stop Date: 09/02/25 Anesthesia Stop Time: 10:23 Coding CPT Codes CPT Codes: ANES LWR INTST NDSC NOS - 08461 ([id number]) P3 - PATIENT W/SEVERE SYS DISEASE, QK - MODEL ARTISTS' 2-4 CNCRNT ANES PROC, QX - SILK SCREEN PROCESSOR SVC W/ MD MED DIRECTION
--- NOTE | 2025-09-02 10:39 | P.ANES_ITS ---
Anesthesia Charges Start Date/Time Anesthesia Start Date: 09/02/25 Anesthesia Start Time: 09:36 Stop Date/Time Anesthesia Stop Date: 09/02/25 Anesthesia Stop Time: 10:23 Coding CPT Codes CPT Codes: ANES LWR INTST NDSC NOS - [id number] ([id number]) QK - WALL MAN 2-4 CNCRNT ANES PROC, QX - SCREW CUTTER SVC W/ MED DIRECTION, P3 - PATIENT W/SEVERE SYS DISEASE
--- NOTE | 2025-09-02 10:39 | W.ANESCHARGE ---
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
== END 2025-09-02 08:45 | disposition home or self-care (01) ==
LOC: OP CLINIC 08:45
PROVIDERS: PCP Internal Medicine; Visit Provider Surgery
DX: Z12.11 Encounter for screening for malignant neoplasm of colon (principal); Z86.0100 Personal history of colon polyps, unspecified; D12.2 Benign neoplasm of ascending colon; D12.3 Benign neoplasm of transverse colon; D12.4 Benign neoplasm of descending colon; D12.5 Benign neoplasm of sigmoid colon; D12.7 Benign neoplasm of rectosigmoid junction; K57.30 Diverticulosis of large intestine without perforation or abscess without bleeding
CPT/HCPCS: 00811; 00812; 45385; J2704

== ENCOUNTER 2025-09-23 10:15 | Outpatient (RCR) | payer BC, SELFPAY | END 2025-11-22 15:19 | disposition home or self-care (01) | PROVIDERS: PCP Internal Medicine; Visit Provider Podiatrist | DX: M76.71 Peroneal tendinitis, right leg (principal); M76.72 Peroneal tendinitis, left leg; M25.371 Other instability, right ankle; M25.572 Pain in left ankle and joints of left foot; Z51.89 Encounter for other specified aftercare | CPT/HCPCS: 97035; 97110; 97112; 97140; 97162 ==